=== PATIENT | male | born 1970 | race Caucasian/White ===

== ENCOUNTER 2021-04-27 10:45 | Emergency (ER) | payer OTHER, SELFPAY ==
--- NOTE | 2021-04-27 10:47 | ED.URI ---
HPI - URI/Sore Throat General Chief Complaint: Upper Respiratory Infection Stated Complaint: Throat irritation Time Seen by Provider: 04/27/21 10:59 Source: patient and RN notes reviewed Mode of arrival: ambulatory Limitations: no limitations History of Present Illness HPI Narrative: 51-year-old male presents concern for sore throat. Reports he was seen by his primary care doctor on April 24 and given Augmentin for a sore throat. Reports that time he had a negative strep test. Reports symptoms have been worsening, white spots on his throat increasing. Reports general malaise. Denies fever, body aches, chills, sweats, cough, headache, nausea, vomiting. Reports he gets a weekly Covid test at work and has been negative. He has been taking ibuprofen for pain relief MD elicited complaint: sore throat Related Data Home Medications Medication Instructions Recorded Confirmed amoxicillin-pot clavulanate 1 tablet BID 04/27/21 04/27/21 doxycycline hyclate 100 mg BID 04/27/21 04/27/21 fluticasone propionate 1 spray INTRANASAL DAILY 04/27/21 04/27/21 hydrochlorothiazide 12.5 mg DAILY 04/27/21 04/27/21 lisinopril 10 mg DAILY 04/27/21 04/27/21 pantoprazole 40 mg PO DAILY 04/27/21 04/27/21 simvastatin 40 mg DAILY 04/27/21 04/27/21 solriamfetol [Sunosi] 150 mg DAILY 04/27/21 04/27/21 venlafaxine 75 mg PO DAILY 04/27/21 04/27/21 Allergies Allergy/AdvReac Type Severity Reaction Status Date / Time No Known Allergies Allergy Verified 04/27/21 11:19 Review of Systems Review of Systems: Narrative: CONSTITUTIONAL: Reports malaise. Denies chills, sweats, or fever. EYES: Denies visual changes, redness, or discharge. ENT: Denies rhinorrhea, congestion, sinus pain, otalgia. Reports sore throat. CARDIOVASCULAR: Denies chest pain, palpitations, or edema. RESPIRATORY: Denies cough or dyspnea. GASTROINTESTINAL: Denies abdominal pain, nausea, vomiting, diarrhea SKIN: Denies rash or itching. MUSCULOSKELETAL: Denies myalgia. NEUROLOGIC: Denies headache. All systems reviewed & are unremarkable except as noted in HPI and below PMFSH Social History Social History Gender identity (if verbalized by the patient): Male Comments At time of signature, agree with nursing past medical, surgical, social and family history. There is no relevant family history pertinent to the presenting complaint Exam Narrative: Exam Narrative: GENERAL: Well-appearing, well-nourished, and in no acute distress. HEAD: Normocephalic EYES: PERRLA, conjunctivae clear ENT: Nares clear. Mucous membranes moist. Oropharynx erythematous without lesions. Tonsils enlarged and with white exudate, no drooling, no hoarseness, no trismus, uvula midline. NECK: Supple. No lymphadenopathy CHEST: Clear to auscultation, breath sounds equal. No wheezing, rhonchi, rales, or stridor. No respiratory distress, speaks in full sentences. HEART: Regular rate and rhythm. No murmur heard. SKIN: Warm, dry, no rash. NEURO: Alert and oriented x3. PSYCH: Normal mood and affect Course Course Emergency Course: Patient is aware of diagnosis, understands and agrees to treatment plan. Anticipatory guidance given. Patient agrees to follow-up as directed and is aware of reasons to seek care at the emergency department. Portions of this record may have been created with voice recognition software Vital Signs Vital signs: Vital Signs Temperature 98.1 F 04/27/21 11:00 Pulse Rate 61 04/27/21 11:00 Respiratory Rate 20 04/27/21 11:00 Blood Pressure 150/72 H 04/27/21 11:00 Pulse Oximetry 98 04/27/21 11:00 Temperature 98.1 F 04/27/21 11:00 Pulse Rate 61 04/27/21 11:00 Respiratory Rate 20 04/27/21 11:00 Blood Pressure 150/72 H 04/27/21 11:00 Pulse Oximetry 98 04/27/21 11:00 Reviewed. MDM - URI/Sore Throat MDM Narrative Medical decision making narrative: Differential diagnosis considered: Reddy virus, strep pharyngitis, allergic rhinitis, upper respiratory tract infectio
[2021-04-27 11:00] VITALS: BP 150/72; PULSE 61; RESP 20; TEMP 36.7; O2SAT 98
== END 2021-04-27 11:25 | disposition home or self-care (01) ==
PROVIDERS: Emergency Provider Nurse Practitioner; PCP Internal Medicine
DX: J02.0 Streptococcal pharyngitis (principal); I25.10 Atherosclerotic heart disease of native coronary artery without angina pectoris; E78.00 Pure hypercholesterolemia, unspecified; I10 Essential (primary) hypertension; J44.9 Chronic obstructive pulmonary disease, unspecified; K21.9 Gastro-esophageal reflux disease without esophagitis
CPT/HCPCS: 36416; 86308; 87880; 99203; G0463

== ENCOUNTER 2023-10-26 12:27 | Emergency (ER) | payer OTHER, SELFPAY ==
[2023-10-26 12:59] VITALS: BP 140/75; PULSE 70; RESP 18; TEMP 36.3; O2SAT 96
--- NOTE | 2023-10-26 13:07 | ED.URI ---
HPI - URI/Sore Throat General Chief Complaint: Upper Respiratory Infection Stated Complaint: congestion Time Seen by Provider: 10/26/23 12:50 Source: patient Mode of arrival: ambulatory Limitations: no limitations History of Present Illness HPI Narrative: Patient is a 53-year-old male that presents with 3 days of congestion and productive cough. Patient has history of COPD and has been taking Flonase, Zyrtec, albuterol inhaler, Sudafed and Mucinex DM. Patient also takes doxy daily for COPD. Denies any fever, chills, ear pain, nausea, vomiting, diarrhea. Related Data Home Medications Medication Instructions Recorded Confirmed doxycycline hyclate 100 mg capsule 100 mg BID 04/27/21 10/26/23 fluticasone propionate 50 1 spray intranasal DAILY 04/27/21 10/26/23 mcg/actuation nasal spray,suspension hydrochlorothiazide 12.5 mg capsule 12.5 mg DAILY 04/27/21 10/26/23 lisinopril 10 mg tablet 10 mg DAILY 04/27/21 10/26/23 pantoprazole 40 mg tablet,delayed 40 mg PO DAILY 04/27/21 10/26/23 release simvastatin 40 mg tablet 40 mg DAILY 04/27/21 10/26/23 albuterol sulfate 90 mcg/actuation inhalation 10/26/23 10/26/23 aerosol inhaler Allergies Allergy/AdvReac Type Severity Reaction Status Date / Time Sulfa (Sulfonamide Allergy Severe Swelling Verified 10/26/23 13:03 Antibiotics) of Lip/Tongue/Throat Review of Systems Review of Systems: All systems reviewed & are unremarkable except as noted in HPI and below Constitutional: Constitutional: Denies body ache(s), Denies chills, Denies fatigue, Denies fever(s), Denies headache(s), Denies malaise and Denies weakness Eyes: Eyes: Denies blurry vision, Denies itchy eyes and Denies loss of vision ENT: Denies otalgia, Denies headache(s), Reports nasal congestion, Denies sinus pain and Denies sore throat Cardiovascular: Cardiovascular: Denies chest pain, Denies irregular heart rhythm and Denies dyspnea Respiratory: Respiratory: Reports cough and Denies dyspnea Gastrointestinal: Gastrointestinal: Denies abdominal pain, Denies diarrhea, Denies nausea and Denies vomiting Musculoskeletal: Musculoskeletal: Denies back pain, Denies myalgias and Denies arthralgias Integumentary/Breasts: Skin/Breast: Denies pruritus and Denies rash Neurologic: Denies headache(s), Denies loss of vision and Denies weakness Psychiatric: Psychiatric: Reports no additional psychiatric complaints Endocrine: Endocrine: Denies fatigue Allergic/Immunologic: Allergic/Immunologic: Denies itchy eyes PMFSH Social History Social History Gender identity (if verbalized by the patient): Male Comments At time of signature, agree with nursing past medical, surgical, social and family history. There is no relevant family history pertinent to the presenting complaint. Exam Const: General: cooperative, healthy appearing, comfortable, no acute distress and well nourished Nutritional Appearance: well nourished Orientation/consciousness: patient oriented x3 Limitations: no limitations HENMT: Head: normal to inspection, normocephalic and atraumatic Ears: hearing grossly normal bilaterally, external ears normal, TM's normal bilaterally, EAC's normal and no periauricular adenopathy Face/Nose/Sinus: Normal external nose present, Abnormal mucous membranes and turbinates present erythematous bilateral and diffuse, normal facial exam, sinuses nontender and face symmetric Face and sinus: normal facial exam, sinuses nontender and face symmetric Mouth: Yes Normal oral and palatal mucosa present, Yes lip normal, Yes tongue normal, Yes Normal salivary glands and ducts present, Yes oropharynx normal and Yes moist mucous membranes Teeth and gingiva: dentition normal Throat: posterior oropharynx normal, tonsils normal and uvula midline Eyes: General: appearance normal, both eyes and all related structures Alignment and Position: alignment normal and position norm
== END 2023-10-26 13:18 | disposition home or self-care (01) ==
PROVIDERS: Emergency Provider Nurse Practitioner Family; PCP Family Medicine
DX: J06.9 Acute upper respiratory infection, unspecified (principal); I25.10 Atherosclerotic heart disease of native coronary artery without angina pectoris; E78.00 Pure hypercholesterolemia, unspecified; I10 Essential (primary) hypertension; J44.9 Chronic obstructive pulmonary disease, unspecified; K21.9 Gastro-esophageal reflux disease without esophagitis
CPT/HCPCS: 99213; G0463